=== PATIENT | female | born 1985 | race African-American/Black ===

== ENCOUNTER 2020-12-14 19:35 | Inpatient (IN) | payer BC ==
[2020-12-14 20:24] LABS: BASO % 1.1 % (0-2.0); EOS % 1.3 % (0-4.5); HEMOGLOBIN 11.5 GM/dL (10.7-15.3); LYMPH % 17.2 % (8-40); MCH 28.1 pg (25.7-33.7); MCHC 33.8 g/dl (32.0-36.0); MEAN CELL VOLUME 83.1 fl (80-96); MEAN PLT VOLUME 9.9 fl (7.5-11.1); MONO % 10.4 % (3.8-10.2); PLATELET COUNT 157 10^3/uL (134-434); RBC 4.09 M/mm3 (3.60-5.2); RDW 13.7 % (11.6-15.6); WHITE BLOOD COUNT 10.2 K/mm3 (4.0-10.0)
[2020-12-14] MEDS ORDERED: DINOPROSTONE 10 MG VAGINAL SUPPOSITORY VG ONE (20:25)
[2020-12-14] MEDS ORDERED: ELECTROLYTE-148 SOLN 1,000 ML IV SCH (20:30)
[2020-12-14 20:33] LABS: INR 1.04 (0.83-1.09); PROTHROMBIN TIME (PATIENT) 11.6 SEC (9.7-13.0)
[2020-12-14 20:48] LABS: CALCIUM 8.5 mg/dL (8.5-10.1)
[2020-12-14 20:49] LABS: BLOOD UREA NITROGEN 11.7 mg/dL (7-18)
[2020-12-14 20:53] LABS: CREATININE 0.7 mg/dL (0.55-1.3)
[2020-12-14 22:57] VITALS: BMI 42.3
[2020-12-14] MEDS ORDERED: ZOLPIDEM TARTRATE 5 MG TABLET PO ONE (23:28)
[2020-12-15] MEDS ORDERED: ZOLPIDEM TARTRATE 5 MG TABLET ONE (01:15)
[2020-12-15] MEDS ORDERED: PROMETHAZINE HCL 25 MG/1 ML VIAL IVPB ONE ×2 (01:25→15:19)
[2020-12-15] MEDS ORDERED: BUTORPHANOL TARTRATE 1 MG/ML VIAL IVPB ONE ×2 (01:25→15:18)
[2020-12-15] MEDS ORDERED: PROMETHAZINE HCL 25 MG/1 ML VIAL ONE ×2 (01:39→15:21)
[2020-12-15] MEDS ORDERED: BUTORPHANOL TARTRATE 2 MG/ML VIAL ONE ×2 (01:39→15:21)
[2020-12-15] MEDS ORDERED: FENTANYL/BUPIVACAINE/NS/PF - PCEA - 50 ML DISP.SYRIN EP ONE (05:15)
[2020-12-15] MEDS ORDERED: PCA PUMP NR ONE (05:51)
[2020-12-15] MEDS ORDERED: BUPIVACAINE HCL/PF 0.25% (2.5MG/ML) 10 ML VIAL ONE ×2 (06:53→07:52)
[2020-12-15] MEDS ORDERED: OXYTOCIN 30 UNITS in 0.9% NS 30 UNIT/500 ML INFUS.BAG IVPB SCH (08:00)
[2020-12-15] MEDS ORDERED: LIDOCAINE HCL 1% PRESERVATIVE FREE - 30ML VIAL ONE ×2 (08:05→13:02)
[2020-12-15] MEDS ORDERED: NALOXONE HCL 0.4 MG/ML VIAL IVPUSH PRN (08:30)
[2020-12-15] MEDS ORDERED: FENTANYL/BUPIVACAINE/NS/PF - PCEA - 50 ML DISP.SYRIN EP SCH (08:30)
[2020-12-15] MEDS ORDERED: OXYTOCIN 30 UNITS in 0.9% NS 30 UNIT/500 ML INFUS.BAG IVPB ONE (09:06)
[2020-12-15] MEDS ORDERED: OXYTOCIN 20 UNITS in 0.9% NS 20 UNIT/1,000 ML INFUS.BAG IV ONE (13:01)
[2020-12-15] MEDS ORDERED: OXYTOCIN 10 UNITS/ML VIAL ONE (18:13)
[2020-12-15] MEDS ORDERED: METHYLERGONOVINE MALEATE 0.2 MG/1 ML AMP IM PRN (18:31)
[2020-12-15] MEDS ORDERED: ACETAMINOPHEN 325 MG TABLET (FP) PO PRN ×2 (18:31→18:40)
[2020-12-15] MEDS ORDERED: BENZOCAINE 28 GM HEMORRHOIDAL OINTMENT TP PRN (18:31)
[2020-12-15] MEDS ORDERED: BENZOCAINE 20% 57 GM BOTTLE TP PRN (18:31)
[2020-12-15] MEDS ORDERED: BISACODYL 10 MG SUPP.RECT RC PRN (18:31)
[2020-12-15] MEDS ORDERED: WITCH HAZEL 50% (TUCKS) 40 PAD/JAR PAD TP PRN (18:31)
[2020-12-15] MEDS ORDERED: OXYTOCIN 20 UNITS in 0.9% NS 20 UNIT/1,000 ML INFUS.BAG IV SCH (18:45)
[2020-12-15] MEDS ORDERED: OXYTOCIN 10 UNITS/ML VIAL IM ONE (19:00)
[2020-12-16] MEDS ORDERED: ENOXAPARIN NA (PORCINE) 40 MG/0.4 ML DISP.SYRIN SQ SCH (06:00)
[2020-12-16] MEDS: IBUPROFEN 600 MG TABLET (FP) PO PRN ×2 (06:02→23:14)
[2020-12-16 09:07] LABS: BASO % 0.3 % (0-2.0); EOS % 1.8 % (0-4.5); HEMATOCRIT 35.1 % (32.4-45.2); HEMOGLOBIN 11.8 GM/dL (10.7-15.3); LYMPH % 16.2 % (8-40); MCHC 33.7 g/dl (32.0-36.0); MEAN CELL VOLUME 83.1 fl (80-96); MEAN PLT VOLUME 10.4 fl (7.5-11.1); MONO % 9.5 % (3.8-10.2); NEUT % 72.2 % (42.8-82.8); PLATELET COUNT 147 10^3/uL (134-434); RBC 4.23 M/mm3 (3.60-5.2); RDW 13.5 % (11.6-15.6); WHITE BLOOD COUNT 15.5 K/mm3 (4.0-10.0)
[2020-12-16] MEDS ORDERED: SENNOSIDES/DOCUSATE COMBO (SENNA PLUS) TABLET (UD) PO PRN (22:00)
[2020-12-16] MEDS ORDERED: ENOXAPARIN NA (PORCINE) 40 MG/0.4 ML DISP.SYRIN SQ STA (23:00)
[2020-12-16] MEDS ORDERED: ENOXAPARIN 100 MG, ENOXAPARIN 30 MG SQ SCH (23:15)
[2020-12-17 08:59] VITALS: BP 107/73; PULSE 77; TEMP 97.7
[2020-12-17] MEDS ORDERED: ENOXAPARIN NA (PORCINE) 40 MG/0.4 ML DISP.SYRIN SQ ONE ×2 (10:00→10:15)
[2020-12-17] MEDS: IBUPROFEN 600 MG TABLET (FP) PO PRN (10:18)
== END 2020-12-17 13:00 | disposition home or self-care (01) | DRG 807 ==
LOC: JLDR 19:35 → J3W 12-15 20:30
PROVIDERS: ADMIT Specialist; ATTEND Specialist
PROC: 3E0P7VZ Introduction of Hormone into Female Reproductive, Via Natural or Artificial Opening (ICD-10-PCS; 2020-12-14)
PROC: 10E0XZZ Delivery of Products of Conception, External Approach (ICD-10-PCS; principal; 2020-12-15)
DX: O99.214 Obesity complicating childbirth (principal); Z37.0 Single live birth; Z3A.38 38 weeks gestation of pregnancy
CPT/HCPCS: 36415; 59409; 80048; 85025; 85610; 85730; 86780; 86850; 86900; 86901; 93971-TC; C9803; U0003; U0005